=== PATIENT | female | born 1940 | race Caucasian/White ===

== ENCOUNTER → 2020-04-30 13:29 | Outpatient (CLI) | payer MEDICARE ==
--- NOTE | 2020-05-04 16:00 | EC ---
PATIENT:TALISHA MATTHEWS DATE OF SERVICE: 04/30/20 SEX: F MEDICAL RECORD: [id number] DATE OF : 44 LOCATION:[facility] AGE OF PATIENT: 79 ADMISSION DATE: 04/30/20 REFERRING PHYSICIAN: INTERPRETING PHYSICIAN: SHIELA DELVALLE MD ECHOCARDIOGRAM REPORT ECHO CHARGES 4 ECHO COMPLETE Date: 04/30/20 CLINICAL DIAGNOSIS: ASSESS EF AND VALVES HX OF HTN/AFIB ECHOCARDIOGRAPHIC MEASUREMENTS (adult normal given) AC root (d.<3.7cm) 2.5 cm LV Septum d (<1.2 cm> 0.90 cm Valve Excursion 1.1 cm LV Septum (systole) 1.2 cm Left Atria (s.<4.0cm> 2.8 cm LVPW d(<1.2cm) 1.1 cm RV (d.<2.3cm) 4.1 cm LVPW (sytole) 1.2 cm LV diastole(<5.6CM) 3.8 cm MV E-F(>70mm/sec) cm LV systole 2.2 cm LVOT Diameter 1.4 cm MV exc.(>10mm) 0.90 cm Est.ejection fraction (50-75%) % DOPPLER: LVIT cm/sec A 110.0cm/sec E 96.0 cm/sec LA cm/sec RVSP 38 mmHg LVOT 109 cm/sec AOP1/2T m/s Asc. Ao 144 cm/sec RVOT 83 cm/sec RA cm/sec PA 115 cm/sec AV Gradient Peak 8.34 mmHg AV Mean 4.75 mmHg AV Area 1.2 cm MV Gradient Peak 5.81 mmHg MV Mean 2.33 mmHg MV Area cm COMMENTS: Project Production Engineer: 2 GUY AGRAWAL Caser In: 3 Dr. Oscar TAPE# PACS Pericardial Effusion N DATE OF SERVICE: Adequate 2D, color-flow imaging, spectral Doppler, and M-Mode FINDINGS: No LVH. LV internal dimensions are normal. Wall motion is normal. EF is greater than or equal to 55%. Aortic valve is tricuspid. No evidence of stenosis by Doppler interrogation. Left atrium is normal at 2.8 cm. Mitral valve shows no prolapse. Trace MR. Right side is grossly normal. Mild TR. TRANSINT:[id number] Voice Confirmation ID: [id number] DOCUMENT ID: [id number] ECHOCARDIOGRAM REPORT [id number] TALISHA MATTHEWS GREGORY A MD at 1600 CC: [id number] DICTATION DATE: 05/01/20833 LINOLEUM FLOOR INSTALLER: 05/01/20 0915 DEP CLI 04/30/20 [place] [id number] [place] [id number]
== END | disposition home or self-care (01) ==
LOC: D.HCCECHO 13:29
PROVIDERS: ATTEND Internal Medicine Interventional Cardiology
DX: I10 Essential (primary) hypertension (principal)